=== PATIENT | male | born 1945 | race Caucasian/White ===

== ENCOUNTER 2018-01-10 05:16 | Emergency (ER) | payer MEDICARE ==
[2018-01-10 05:40] LABS: APPEARANCE,URINE Clear (CLEAR); BILIRUBIN,URINE Negative (NEGATIVE); COLOR,URINE Yellow (YELLOW); GLUCOSE, URINE (UA) TRACE mg/dL (NEGATIVE); KETONES,URINE Negative (NEGATIVE); LEUKOCYTE ESTERASE ,URINE Negative (NEGATIVE); NITRATE,URINE Negative (NEGATIVE); OCCULT BLOOD,URINE Large (NEGATIVE); PROTEIN,URINE 300 (NEGATIVE); UROBILINOGEN,URINE 0.2 mg/dL (0.2-1.0)
[2018-01-10 05:42] LABS: BACTERIA,URINE None Seen /HPF (None Seen); RBC,URINE TNTC /HPF (0-1); SQUAMOUS EPITHELIAL CELL,UR Few /HPF (0-2)
[2018-01-10 05:43] LABS: MUCUS,URINE Few LPF (None Seen)
[2018-01-10 06:16] LABS: BASOPHILS % (AUTO) 0.6 % (0.0-5.0); EOSINOPHILS % (AUTO) 1.4 % (0.0-8.0); HEMATOCRIT 33.7 % (42-54); LYMPHOCYTES % (AUTO) 12.3 % (21.0-51.0); MEAN CORPUSCULAR HEMOGLOBIN 32.6 pg (27.0-33.0); MEAN CORPUSCULAR HGB CONC 35.6 g/dL (32.0-36.0); MEAN CORPUSCULAR VOLUME 91.6 fL (79-99); MONOCYTES % (AUTO) 6.7 % (3.0-13.0); PLATELET COUNT (AUTO) 218 K/uL (130-400); RED BLOOD CELL COUNT(AUTO) 3.68 MIL/uL (4.50-6.20); RED CELL DISTRIBUTION WIDTH 14.2 % (11.0-15.5); WHITE BLOOD COUNT (AUTO) 7.5 K/uL (4.8-10.8)
[2018-01-10 06:26] LABS: CREATININE 1.7 mg/dL (0.5-1.5); POTASSIUM 4.2 mmol/L (3.5-5.1)
[2018-01-16] MEDS ORDERED: CARV6.25 PO (16:00)
== END 2018-01-10 07:14 | disposition home or self-care (01) ==
LOC: EDH 05:16
DX: C67.9 Malignant neoplasm of bladder, unspecified (principal); R31.9 Hematuria, unspecified; R30.0 Dysuria; I25.810 Atherosclerosis of coronary artery bypass graft(s) without angina pectoris; I10 Essential (primary) hypertension; Z95.0 Presence of cardiac pacemaker; Z88.1 Allergy status to other antibiotic agents; Z88.6 Allergy status to analgesic agent
CPT/HCPCS: 36415; 80048; 81001; 85025; 87088

== ENCOUNTER → 2018-01-16 | Outpatient (CLI) | payer MEDICARE ==
[~2018-01-16] MED LIST: CARV6.25 PO
== END | disposition home or self-care (01) ==
LOC: SHCH 08:36
PROVIDERS: ATTEND Internal Medicine Cardiovascular Disease
DX: Z01.810 Encounter for preprocedural cardiovascular examination (principal); I10 Essential (primary) hypertension; E78.5 Hyperlipidemia, unspecified; Z95.0 Presence of cardiac pacemaker
CPT/HCPCS: 93306

== ENCOUNTER 2018-01-20 05:17 | Observation (INO) | payer MEDICARE ==
[2018-01-16 15:53] VITALS: BP 138/76
[2018-01-16 16:00] LABS: HEMATOCRIT 36.4 % (42-54); MEAN CORPUSCULAR HEMOGLOBIN 31.6 pg (27.0-33.0); MEAN CORPUSCULAR HGB CONC 34.4 g/dL (32.0-36.0); MEAN CORPUSCULAR VOLUME 91.8 fL (79-99); PLATELET COUNT (AUTO) 224 K/uL (130-400); RED BLOOD CELL COUNT(AUTO) 3.97 MIL/uL (4.50-6.20); RED CELL DISTRIBUTION WIDTH 14.3 % (11.0-15.5); WHITE BLOOD COUNT (AUTO) 6.3 K/uL (4.8-10.8)
[2018-01-16 16:05] LABS: APPEARANCE,URINE Cloudy (CLEAR); BILIRUBIN,URINE Negative (NEGATIVE); COLOR,URINE Yellow (YELLOW); GLUCOSE, URINE (UA) Negative (NEGATIVE); KETONES,URINE Negative (NEGATIVE); LEUKOCYTE ESTERASE ,URINE Small (NEGATIVE); NITRATE,URINE Negative (NEGATIVE); OCCULT BLOOD,URINE Negative (NEGATIVE); PH,URINE 7.5 (5.0-8.0); PROTEIN,URINE Negative (NEGATIVE)
[2018-01-16 16:11] LABS: CREATININE 1.3 mg/dL (0.5-1.5)
[2018-01-16 16:12] LABS: AMORPHOUS SEDIMENT,UR Moderate /LPF (None Seen); BACTERIA,URINE Few /HPF (None Seen); RBC,URINE None Seen /HPF (0-1); SQUAMOUS EPITHELIAL CELL,UR None Seen /HPF (0-2); WBC,URINE 0-1 /HPF (0-1)
[2018-01-16 16:14] LABS: INR 1.02 (0.85-1.15); PROTHROMBIN TIME 10.7 SEC (9.6-11.6)
[2018-01-20] VITALS (36 sets, daily range): BP systolic 111–169; BP diastolic 68–97
[~2018-01-20] VITALS: Ht 172.7 cm; Wt 73.5 kg
[~2018-01-20 05:17] MED LIST changes: +CEFAZOLIN SODIUM 1 GM VIAL IVP ONE
[2018-01-20] MEDS ORDERED: LACTATED RINGERS 1000ML 1,000 ML IV ONE (05:55)
[2018-01-20] MEDS: CEFAZOLIN SODIUM 1 GM VIAL ONE ×2 (05:56→07:53)
[2018-01-20] MEDS ORDERED: MITOMYCIN 40 MG VIAL IV SCH (06:34)
[2018-01-20] MEDS ORDERED: LACTATED RINGERS 1000ML 1,000 ML IV SCH (06:34)
[2018-01-20] MEDS ORDERED: LIDOCAINE PF 2% 5ML ABBOJECT ONE (07:39)
[2018-01-20] MEDS ORDERED: GLYCOPYRROLATE 0.2 MG/ML 5 ML VIAL ONE ×2 (07:39→08:21)
[2018-01-20] MEDS ORDERED: DEXAMETHASONE SOD PHOSPHATE 10MG/ML 1ML VIAL ONE ×2 (07:39→08:22)
[2018-01-20] MEDS ORDERED: NEOSTIGMINE 5MG/5ML SYR IV ONE ×2 (07:39→08:21)
[2018-01-20] MEDS ORDERED: FENTANYL CITRATE PF 50 MCG/1 ML 2ML VIAL ONE ×2 (07:40→08:30)
[2018-01-20] MEDS ORDERED: EPHEDRINE SULFATE 50 MG/ML AMPULE ONE (07:40)
[2018-01-20] MEDS ORDERED: MIDAZOLAM HCL 1 MG/ML 2ML VIAL ONE ×2 (07:40→10:00)
[2018-01-20] MEDS ORDERED: PROPOFOL 10 MG/ML 20ML VIAL IV ONE (07:40)
[2018-01-20] MEDS ORDERED: MITOMYCIN 40 MG VIAL ONE (07:42)
[2018-01-20] MEDS ORDERED: SUB TO ALBUTEROL 2.5MG/3ML NEBULES PER P&T IH ONE (08:02)
[2018-01-20] MEDS ORDERED: LIDOCAINE HCL 4% LTA SOL 4 ML VIAL ONE ×2 (08:22)
[2018-01-20] MEDS ORDERED: LIDOCAINE HCL 2% JELLY 5 ML ONE (08:22)
[2018-01-20] MEDS ORDERED: MEPERIDINE-PF 25 MG/ML SYG ONE ×2 (09:14→09:24)
[2018-01-20] MEDS ORDERED: ONDANSETRON HCL MDV 20ML 2 MG/ML VIAL IVP PRN (15:45)
[2018-01-20] MEDS ORDERED: MEPERIDINE-PF 75 MG/ML SYG IM PRN (15:45)
[2018-01-20] MEDS: CEFAZOLIN SODIUM 1 GM VIAL IVP SCH (16:43)
[2018-01-20] MEDS: LACTATED RINGERS 1000ML 1,000 ML IV SCH (16:44)
[2018-01-20] MEDS: ACETAMINOPHEN 325 MG TAB PO PRN ×2 (16:54→22:50)
[2018-01-20] MEDS: CARVEDILOL 6.25 MG TABLET PO SCH (21:40)
[2018-01-21] VITALS: BP 112/19
[2018-01-21] MEDS: LACTATED RINGERS 1000ML 1,000 ML IV SCH ×2 (01:45→15:43)
[2018-01-21 03:53] VITALS: BP 120/83
[2018-01-21 04:38] LABS: HEMATOCRIT 30.7 % (42-54); MEAN CORPUSCULAR HEMOGLOBIN 32.8 pg (27.0-33.0); MEAN CORPUSCULAR HGB CONC 35.8 g/dL (32.0-36.0); MEAN CORPUSCULAR VOLUME 91.7 fL (79-99); PLATELET COUNT (AUTO) 201 K/uL (130-400); RED BLOOD CELL COUNT(AUTO) 3.34 MIL/uL (4.50-6.20); RED CELL DISTRIBUTION WIDTH 14.2 % (11.0-15.5); WHITE BLOOD COUNT (AUTO) 9.9 K/uL (4.8-10.8)
[2018-01-21 04:43] LABS: CREATININE 1.4 mg/dL (0.5-1.5); POTASSIUM 3.8 mmol/L (3.5-5.1)
[2018-01-21 07:58] VITALS: BP 140/88
[2018-01-21] MEDS: CARVEDILOL 6.25 MG TABLET PO SCH (08:39)
[2018-01-21] MEDS: CEFAZOLIN SODIUM 1 GM VIAL IVP SCH ×3 (08:40→15:42)
[2018-01-21 11:41] VITALS: BP 123/79
== END 2018-01-21 17:44 | disposition home or self-care (01) ==
LOC: DAH 05:17 → DAHIP 05:18 → DAH 05:18 → DAHIP 14:24 → 3DH 14:47 → EEVIPCON 16:30
PROVIDERS: ADMIT Urology; ATTEND Urology
DX: D49.4 Neoplasm of unspecified behavior of bladder (principal); D09.9 Carcinoma in situ, unspecified; I10 Essential (primary) hypertension; Z95.1 Presence of aortocoronary bypass graft
CPT/HCPCS: 36415 ×2; 52224; 71046; 80048 ×2; 81001; 85027 ×2; 85610; 85730; 87088; 88305; 93005; 96374; 96376; A4218 ×5; A4354; A4358; A4930; G0378 ×36; J0690 ×6; J1100 ×2; J2001; J2175 ×2; J2250 ×2; J2704; J2710 ×2; J3010 ×2; J3490 ×3; J7120 ×3; J9280 ×2

== ENCOUNTER 2019-11-27 15:42 | Emergency (ER) | payer MEDICARE ==
[~2019-11-27 15:42] MED LIST changes: -CEFAZOLIN SODIUM 1 GM VIAL IVP ONE
[2019-11-27 16:16] LABS: APPEARANCE,URINE Clear (CLEAR); BILIRUBIN,URINE Negative (NEGATIVE); COLOR,URINE Yellow (YELLOW); GLUCOSE, URINE (UA) Negative (NEGATIVE); KETONES,URINE Negative (NEGATIVE); LEUKOCYTE ESTERASE ,URINE Negative (NEGATIVE); NITRATE,URINE Negative (NEGATIVE); OCCULT BLOOD,URINE Nonhemolyzed Trace (NEGATIVE); PH,URINE 7.5 (5.0-8.0); PROTEIN,URINE POS 1+ mg/dL (NEGATIVE); UROBILINOGEN,URINE 0.2 mg/dL (0.2-1.0)
[2019-11-27 16:30] LABS: BACTERIA,URINE None Seen /HPF (None Seen); SQUAMOUS EPITHELIAL CELL,UR 0-2 /HPF (0-2)
== END 2019-11-27 16:23 | disposition home or self-care (01) ==
LOC: EDH 15:42
DX: N47.6 Balanoposthitis (principal); I10 Essential (primary) hypertension; I25.10 Atherosclerotic heart disease of native coronary artery without angina pectoris; Z95.0 Presence of cardiac pacemaker; Z88.1 Allergy status to other antibiotic agents; Z88.6 Allergy status to analgesic agent
CPT/HCPCS: 81001

== ENCOUNTER → 2022-05-20 | Outpatient (CLI) | payer MEDICARE ==
[~2022-05-20] MED LIST changes: +IOHEXOL 350 MG/ML 100ML INFUS..BTL IV ONE
== END | disposition home or self-care (01) ==
LOC: RAH 09:33
PROVIDERS: ATTEND Urology
DX: C64.2 Malignant neoplasm of left kidney, except renal pelvis (principal); J90 Pleural effusion, not elsewhere classified; I25.10 Atherosclerotic heart disease of native coronary artery without angina pectoris; J84.10 Pulmonary fibrosis, unspecified; I70.8 Atherosclerosis of other arteries; M47.815 Spondylosis without myelopathy or radiculopathy, thoracolumbar region; N28.1 Cyst of kidney, acquired; K57.90 Diverticulosis of intestine, part unspecified, without perforation or abscess without bleeding; K40.20 Bilateral inguinal hernia, without obstruction or gangrene, not specified as recurrent
CPT/HCPCS: 74178; Q9967

== ENCOUNTER 2023-10-05 10:57 | Emergency (ER) | payer MEDICARE ==
[~2023-10-05] VITALS: Ht 172.7 cm; Wt 6.8 kg
[~2023-10-05 10:57] MED LIST changes: -IOHEXOL 350 MG/ML 100ML INFUS..BTL IV ONE
[2023-10-05 11:44] VITALS: BP 145/85; PULSE 77; RESP 14
[2023-10-05] MEDS ORDERED: PENICILLIN G BENZATHINE LA 1.2 MILUNITS/2 ML SYG IM ONE (13:30)
== END 2023-10-05 16:10 | disposition home or self-care (01) ==
LOC: EDH 10:57
DX: N48.89 Other specified disorders of penis (principal); I11.0 Hypertensive heart disease with heart failure; I50.9 Heart failure, unspecified; I25.10 Atherosclerotic heart disease of native coronary artery without angina pectoris; Z88.1 Allergy status to other antibiotic agents; Z88.2 Allergy status to sulfonamides; Z88.5 Allergy status to narcotic agent; Z95.1 Presence of aortocoronary bypass graft; Z95.810 Presence of automatic (implantable) cardiac defibrillator
CPT/HCPCS: 99283; 86592; 87070; 87076; 87077; 87186; 36415; 96372; J0561